=== PATIENT | male | born 1990 | race Caucasian/White ===

== ENCOUNTER 2020-01-13 13:09 | Emergency (ER) | payer SELFPAY ==
[2020-01-13 13:47] VITALS: BP 152/84
[2020-01-13] MEDS ORDERED: IBUPROFEN 800 MG TABLET PO ONE (13:51)
[2020-01-13 13:52] LABS: A TYPE INFLUENZA AG NEGATIVE (NEGATIVE); B INFLUENZA AG NEGATIVE (NEGATIVE)
--- NOTE | 2020-01-13 13:52 | ER Document Report ---
ED Fever - General Chief Complaint: Fever Stated Complaint: FEVER Time Seen by Provider: 01/13/20 13:30 Mode of Arrival: Ambulatory Information source: Patient Notes: 29-year-old male no previous medical problems presents emergency room complaining of fevers of 101, body aches, sore throat, cough for the past 2 days. Last dose of Tylenol was yesterday. No nausea, no vomiting, no abdominal pain. No shortness of breath, no difficulty breathing. Patient recently moved to the area from [place] 3 weeks ago. No known COVID exposure, no other ill contacts. Eating and drinking normally. TRAVEL OUTSIDE OF THE [place] IN LAST 30 DAYS: No - Related Data Allergies/Adverse Reactions: amoxicillin Adverse Reaction (Verified 01/13/20 13:28) Past Medical History - General Information source: Patient - Social History Smoking Status: Current Every Day Smoker - e cigarettes Chew tobacco use (# tins/day): No Frequency of alcohol use: Rare Family History: Reviewed & Not Pertinent Patient has homicidal ideation: No Review of Systems - Review of Systems Constitutional: Fever EENT: Throat pain Cardiovascular: No symptoms reported Respiratory: No symptoms reported Gastrointestinal: denies: Abdominal pain, Diarrhea, Nausea, Vomiting Musculoskeletal: Muscle pain, Other - body aches Skin: No symptoms reported Neurological/Psychological: No symptoms reported -: Yes All other systems reviewed and negative Physical Exam - Vital signs Vitals: Temp 97.9 F 01/13/20 13:24 - General General appearance: Appears well, Alert In distress: None - HEENT Head: Normocephalic, Atraumatic Eyes: Normal Pupils: PERRL - Respiratory Respiratory status: No respiratory distress Chest status: Nontender Breath sounds: Normal Chest palpation: Normal - Cardiovascular Rhythm: Regular Heart sounds: Normal auscultation Murmur: No - Abdominal Inspection: Normal Distension: No distension Bowel sounds: Normal Tenderness: Nontender Organomegaly: No organomegaly - Back Back: Normal, Nontender. No: CVA tenderness - Neurological Neuro grossly intact: Yes Cognition: Normal Orientation: AAOx4 [place] Coma Scale Eye Opening: Spontaneous [place] Coma Scale Verbal: Oriented [place] Coma Scale Motor: Obeys Commands [place] Coma Scale Total: 15 Speech: Normal Motor strength normal: LUE, RUE, LLE, RLE Sensory: Normal - Skin Skin Temperature: Warm Skin Moisture: Dry Skin Color: Normal Course - Re-evaluation Re-evalutation: 01/13/20 14:04 Patient is resting comfortably he was counseled on supportive therapy. Self quarantine for 14 days. Supportive therapy. Outpatient follow-up with a primary care physician if not improving in 2 to 3 days. Given strict return to the emergency room guidelines. Return for any new or worsening symptoms. All questions were answered. Patient verbalized understanding agrees the plan of care. - Vital Signs Vital signs: Temp Pulse Resp BP Pulse Ox 97 F L 86 18 152/84 H 100 01/13/20 13:36 01/13/20 13:36 01/13/20 13:36 01/13/20 13:36 01/13/20 13:36 Discharge - Discharge Clinical Impression: Sore throat, Viral illness Fever Qualifiers: Fever type: unspecified Qualified Code(s): R50.9 - Fever, unspecified Condition: Stable Disposition: HOME, SELF-CARE Instructions: Fever ([facility]), Sore Throat ([facility]), Viral Syndrome ([facility]) Additional Instructions: Rest, push fluids, Tylenol and/or Motrin for fever and body aches. Self quarantine for 14 days. Outpatient follow-up with primary care physician if not improving in 2 to 3 days. Return for any new or worsening symptoms. Forms: Return to Work
== END 2020-01-13 14:19 | disposition home or self-care (01) ==
LOC: ER 13:09
DX: J02.9 Acute pharyngitis, unspecified (principal); B34.9 Viral infection, unspecified; R50.9 Fever, unspecified; M79.10 Myalgia, unspecified site; R05 Cough; F17.290 Nicotine dependence, other tobacco product, uncomplicated; Z88.0 Allergy status to penicillin
CPT/HCPCS: 87070; 87804; 87880; 99283